=== PATIENT | female | born 1995 ===

== ENCOUNTER 2022-05-10 14:47 | Emergency (ER) | payer SELFPAY ==
[2022-05-10 16:42] LABS: Basophils % (Auto) 0.4 % (0.0-1.8); Eosinophils # (Auto) 0.3 K/mm3 (0.0-0.4); Eosinophils % (Auto) 2.9 % (0.0-4.3); Hematocrit 40.7 % (30.3-42.9); Hemoglobin 14.1 gm/dl (10.1-14.3); Lymphocytes # (Auto) 1.5 K/mm3 (1.2-5.4); Lymphocytes % (Auto) 15.6 % (13.4-35.0); Mean Corpuscular HGB Conc 35 % (30-34); Mean Corpuscular Volume 92 fl (79-97); Monocytes # (Auto) 0.6 K/mm3 (0.0-0.8); Monocytes % (Auto) 6.4 % (0.0-7.3); Platelet Count 200 K/mm3 (140-440); Red Blood Count 4.41 M/mm3 (3.65-5.03); Red Cell Distribution Width 12.8 % (13.2-15.2)
[2022-05-10 17:08] LABS: Alanine Aminotransferase 23 units/L (7-56); Albumin 4.2 g/dL (3.9-5); Blood Urea Nitrogen 18 mg/dL (7-17); Calcium 9.1 mg/dL (8.4-10.2); Hemolysis Index 7
[2022-05-10 17:10] LABS: BUN/Creatinine Ratio 30
[2022-05-10] MEDS ORDERED: MORPHINE 4 MG/1 ML INJ IV ONE (18:50)
[2022-05-10] MEDS ORDERED: ONDANSETRON 4 MG/2 ML INJ IV ONE (18:50)
[2022-05-10 19:02] LABS: Mucus,Urine FEW /HPF; RBC,Urine < 1.0 /HPF (0.0-6.0); WBC,Urine < 1.0 /HPF (0.0-6.0)
[2022-05-10] MEDS ORDERED: FAMOTIDINE 20 MG/2 ML INJ IV ONE (19:02)
[2022-05-10] MEDS ORDERED: SODIUM CHLORIDE 0.9% 1000 ML 1,000 ML IV ONE (19:02)
--- NOTE | 2022-05-10 19:10 | Emergency Department Report ---
ED Abdominal Pain HPI - General Chief Complaint: Abdominal Pain Stated Complaint: APENDIX Source: patient Mode of arrival: Ambulatory Limitations: No Limitations - History of Present Illness Initial Comments: Patient is a 26-year-old female with no past medical history presents to the ED with complaint of acute onset persistent diffuse abdominal pain that radiates to the right lower quadrant area with nausea, vomiting and diarrhea for the last 3 days. Patient states that in the last 12 hours she has not been able to keep anything down because of persistent pain. Patient denies dizziness, syncope, chest pain, shortness of breath, fever, chills, dysuria, urinary frequency and urgency, vaginal bleeding, vaginal discharge, low back pain, chest pain and shortness of breath, headache or lightheadedness. MD Complaint: abdominal pain, other (Nausea, vomiting and diarrhea) -: Sudden, days(s) (3) Location: diffuse Radiation: RLQ, suprapubic Severity scale (0 -10): 8 Quality: aching, sharp Consistency: constant Improves With: nothing Worsens With: vomiting Associated Symptoms: denies other symptoms, nausea, vomiting, diarrhea. denies: chills, constipation, dysuria, hematemesis, hematochezia, melena, anorexia, syncope, other - Related Data Previous Rx's Medication Instructions Recorded Last Taken Type Dicyclomine [Bentyl] 20 mg PO Q6H PRN #30 tablet 05/10/22 Unknown Rx Ketorolac [Toradol] 10 mg PO Q8H PRN #20 tab 05/10/22 Unknown Rx Ondansetron [Zofran Odt] 4 mg PO Q8HR PRN #20 tab.rapdis 05/10/22 Unknown Rx Allergies Allergy/AdvReac Type Severity Reaction Status Date / Time No Known Allergies Allergy Unverified 05/10/22 16:25 ED Review of Systems ROS: Stated complaint: APENDIX Other details as noted in HPI Constitutional: denies: chills, fever Eyes: denies: eye pain, eye discharge, vision change ENT: denies: ear pain, throat pain Respiratory: denies: cough, shortness of breath, wheezing Cardiovascular: denies: chest pain, palpitations Endocrine: no symptoms reported Gastrointestinal: abdominal pain (RLQ pain), nausea, vomiting. denies: diarrhea Genitourinary: denies: urgency, dysuria, discharge Musculoskeletal: denies: back pain, joint swelling, arthralgia Skin: denies: rash, lesions Neurological: denies: headache, weakness, paresthesias Psychiatric: denies: anxiety, depression Hematological/Lymphatic: denies: easy bleeding, easy bruising ED Past Medical Hx - Past Medical History Previous Medical History?: No - Medications Home Medications: Home Medications Medication Instructions Recorded Confirmed Last Taken Type Dicyclomine [Bentyl] 20 mg PO Q6H PRN #30 tablet 05/10/22 Unknown Rx Ketorolac [Toradol] 10 mg PO Q8H PRN #20 tab 05/10/22 Unknown Rx Ondansetron [Zofran Odt] 4 mg PO Q8HR PRN #20 tab.rapdis 05/10/22 Unknown Rx ED Physical Exam - General Limitations: No Limitations General appearance: alert, in no apparent distress - Head Head exam: Present: atraumatic, normocephalic, normal inspection - Eye Eye exam: Present: normal appearance, PERRL, EOMI Pupils: Present: normal accommodation - ENT ENT exam: Present: normal exam, normal orophraynx, mucous membranes moist, TM's normal bilaterally, normal external ear exam - Neck Neck exam: Present: normal inspection, full ROM. Absent: tenderness - Respiratory Respiratory exam: Present: normal lung sounds bilaterally. Absent: respiratory distress, wheezes, rales, rhonchi, chest wall tenderness, accessory muscle use, decreased breath sounds, prolonged expiratory - Cardiovascular Cardiovascular Exam: Present: regular rate, normal rhythm, normal heart sounds. Absent: systolic murmur, diastolic murmur, rubs, gallop - GI/Abdominal GI/Abdominal exam: Present: soft, tenderness (Palpable RLQ rebound tenderness, guarding), guarding, rebound, normal bowel sounds. Absent: hyperactive bowel sounds, hypoactive bowel sounds, organomegaly, mass, bruit, pulsatile mass - Extremities Exam Extremities exam: Present: normal inspection, full ROM, normal capillary refill. Absent: tenderness - Back Exam Back exam: Present: normal inspection, full ROM. Absent: tenderness, CVA tenderness (R), CVA tenderness (L), muscle spasm, paraspinal tenderness, vertebral tenderness - Neurological Exam Neurological exam: Present: alert, oriented X3, CN II-XII intact, normal gait, reflexes normal - Psychiatric Psychiatric exam: Present: normal affect, normal mood - Skin Skin exam: Present: warm, dry, intact, normal color. Absent: rash ED Course Vital Signs 05/10/22 05/10/22 16:15 19:00 Temperature 98.9 F Pulse Rate 82 Respiratory 18 20 Rate Blood Pressure 118/53 [Left] O2 Sat by Pulse 100 99 Oximetry ED Medical Decision Making - Lab Data Result diagrams: 05/10/22 16:27 05/10/22 16:27 - Radiology Data Radiology results: report reviewed, image reviewed [facility] [address] [place] [address] Cat Scan Report Signed Patient: RAVEN FAROOQ MR#: [id number] : 1995 Acct:[id number] Age/Sex: 26 / F ADM Date: 05/10/22 Loc: ED Attending Dr: Ordering Physician: GEETA DAWSON Date of Service: 05/10/22 Procedure(s): CT abdomen pelvis w con Accession Number(s): [id number] cc: GEETA DAWSON CT ABDOMEN AND PELVIS WITH CONTRAST INDICATION: abdominal pain 70ml of cord696 . TECHNIQUE: Axial CT images were obtained through the abdomen and pelvis after IV contrast. All CT scans at this location are performed using CT dose reduction for ALARA by means of automated exposure control. COMPARISON: None available. FINDINGS: LOWER CHEST: No significant abnormality. LIVER: No significant abnormality. GALLBLADDER: No significant abnormality. BILE DUCTS: No significant abnormality. PANCREAS: No significant abnormality. SPLEEN: No significant abnormality. ADRENALS: No significant abnormality. RIGHT KIDNEY and URETER: No significant abnormality. LEFT KIDNEY and URETER: No significant abnormality. STOMACH and SMALL BOWEL: No significant abnormality. COLON: No significant abnormality. APPENDIX: No significant abnormality. PERITONEUM: No free fluid. No free air. No fluid collection. LYMPH NODES: No significant adenopathy. AORTA and ARTERIES: No significant abnormality. IVC and VEINS: No significant abnormality. URINARY BLADDER: No significant abnormality. REPRODUCTIVE ORGANS: No significant abnormality. ADDITIONAL FINDINGS: Moderate skin thickening and nodularity within both gluteal regions possibly from subcutaneous injections. Shotty subcentimeter reactive bilateral inguinal and external iliac lymph nodes. SKELETAL SYSTEM: No significant abnormality. IMPRESSION: 1. Prominent skin thickening and subcutaneous nodularity both gluteal regions possibly secondary to iatrogenic injections and noncalcified granulomas. Please confirm clinically. 2. No acute inflammatory process or bowel obstruction Signer Name: Marco Casarez MD Signed: 05/10/2022 7:36 PM Workstation Name: [id number] Transcribed By: TL Dictated By: Marco Casarez MD Electronically Authenticated By: Marco Casarez MD Signed Date/Time: 05/10/221935 DD/ 31 TD/TT: - Medical Decision Making This is a 26-year-old female with no past medical history presents to the ED with complaint of acute onset persistent diffuse abdominal pain that radiates to the right lower quadrant area with nausea, vomiting and diarrhea for the last 3 days. Patient states that in the last 12 hours she has not been able to keep anything down because of persistent pain. In the ED, patient is alert and oriented x3 and is not in any distress. Patient is hemodynamically stable. Lab test results were reviewed and are all nonactionable. Patient was treated for pain in the ED and also received antiemetics. Abdomen pelvis CT scan with IV contrast showed no acute abnormalities. On reevaluation, patient's pain is well controlled medication. Patient will discharge home on medications and advised to follow-up with her primary care physician in 5 to 7 days for reevaluation or return to the ED immediately if symptoms get worse. - Differential Diagnosis Appendicitis; ; UTI; Ovarian cyst; Colitis; Kidney stones Critical care attestation.: If time is entered above; I have spent that time in minutes in the direct care of this critically ill patient, excluding procedure time. ED Disposition Clinical Impression: Acute abdominal pain in right lower quadrant, Nausea, vomiting and diarrhea, Viral gastroenteritis Disposition: 01 HOME / SELF CARE / HOMELESS Is pt being admited?: No Does the pt Need Aspirin: No Condition: Stable Instructions: Nausea and Vomiting, Adult, [id number], Abdominal Pain, Adult, [id number], Abdominal Pain (ED), Diarrhea, Adult, [id number], Viral Gastroenteritis, Adult, [id number] Additional Instructions: All lab test results were reviewed and are all nonactionable. The abdomen pelvis CT scan IV contrast showed no acute abnormalities. Therefore take medication with food, drink plenty of fluids and follow-up with your primary care physician in 7 to 10 days for reevaluation. Return to the ED immediately if symptoms get worse. Prescriptions: Dicyclomine [Bentyl] 20 mg PO Q6H PRN #30 tablet PRN Reason: abdominal pain Ketorolac [Toradol] 10 mg PO Q8H PRN #20 tab PRN Reason: Pain Ondansetron [Zofran Odt] 4 mg PO Q8HR PRN #20 tab.rapdis PRN Reason: Pain , Severe (7-10) Referrals: [facility] [Provider Group] - 3-5 Days Forms: Work/School Release Form(ED) Time of Disposition: 19:10 Print Language: ITALIAN
[2022-05-10 19:32] LABS: Bilirubin,Urine Negative (Negative); Blood,Urine Negative (Negative); Color,Urine Yellow (Yellow); Protein,Urine <15 mg/dL mg/dL (Negative); Urobilinogen,Urine < 2.0 mg/dL (<2.0)
--- NOTE | 2022-05-10 19:40 | Cat Scan Report ---
CT ABDOMEN AND PELVIS WITH CONTRAST INDICATION: abdominal pain 70ml of [id number] . TECHNIQUE: Axial CT images were obtained through the abdomen and pelvis after IV contrast. All CT scans at this location are performed using CT dose reduction for ALARA by means of automated exposure control. COMPARISON: None available. FINDINGS: LOWER CHEST: No significant abnormality. LIVER: No significant abnormality. GALLBLADDER: No significant abnormality. BILE DUCTS: No significant abnormality. PANCREAS: No significant abnormality. SPLEEN: No significant abnormality. ADRENALS: No significant abnormality. RIGHT KIDNEY and URETER: No significant abnormality. LEFT KIDNEY and URETER: No significant abnormality. STOMACH and SMALL BOWEL: No significant abnormality. COLON: No significant abnormality. APPENDIX: No significant abnormality. PERITONEUM: No free fluid. No free air. No fluid collection. LYMPH NODES: No significant adenopathy. AORTA and ARTERIES: No significant abnormality. IVC and VEINS: No significant abnormality. URINARY BLADDER: No significant abnormality. REPRODUCTIVE ORGANS: No significant abnormality. ADDITIONAL FINDINGS: Moderate skin thickening and nodularity within both gluteal regions possibly fro m subcutaneous injections. Shotty subcentimeter reactive bilateral inguinal and external iliac lymph nodes. SKELETAL SYSTEM: No significant abnormality. IMPRESSION: 1. Prominent skin thickening and subcutaneous nodularity both gluteal regions possibly secondary to i atrogenic injections and noncalcified granulomas. Please confirm clinically. 2. No acute inflammatory process or bowel obstruction Signer Name: Marco Casarez MD Signed: 05/10/2022 7:36 PM Workstation Name: [id number]
[2022-05-10] MEDS ORDERED: KETOROLAC 30 MG/1 ML INJ IV ONE (21:06)
[2022-05-10 22:21] VITALS: BP 124/75
== END 2022-05-10 22:21 | disposition home or self-care (01) ==
LOC: ED 14:47
DX: A08.4 Viral intestinal infection, unspecified (principal); R10.31 Right lower quadrant pain; Z79.899 Other long term (current) drug therapy
CPT/HCPCS: 36415; 74177; 80053; 81001; 83690; 84703; 85025; 96361; 96374; 96375; 99284; J1885; J2270; J2405; J3490; J7030; Q9967